=== PATIENT | male | born 1990 | race Caucasian/White ===

== ENCOUNTER 2021-09-28 11:54 | Emergency (ER) | payer SELFPAY ==
[~2021-09-28] VITALS: Ht 177.8 cm; Wt 82.0 kg
[2021-09-28 11:56] VITALS: BP 128/68
== END 2021-09-28 12:29 | disposition home or self-care (01) ==
LOC: ER 12:20
DX: R41.82 Altered mental status, unspecified (principal)
CPT/HCPCS: 99283